=== PATIENT | female | born 1985 | race Caucasian/White ===

== ENCOUNTER 2021-08-26 11:28 | Emergency (ER) | payer OTHER ==
[~2021-08-26] VITALS: Ht 157.5 cm; Wt 50.0 kg
[2021-08-26] MEDS ORDERED: HYDROCODONE/ACETAMINOPHEN 5-325 MG TABLET PO ONE (12:15)
[2021-08-26 14:35] VITALS: BP 102/71
== END 2021-08-26 14:58 | disposition home or self-care (01) ==
LOC: EMS 11:32
DX: M54.2 Cervicalgia (principal); M54.50 Low back pain, unspecified; V49.9XXA Car occupant (driver) (passenger) injured in unspecified traffic accident, initial encounter; Y93.89 Activity, other specified; Y92.488 Other paved roadways as the place of occurrence of the external cause; Y99.8 Other external cause status
CPT/HCPCS: 71046; 72040; 72100; 99284

== ENCOUNTER 2021-08-27 11:03 | Emergency (ER) | payer OTHER ==
[~2021-08-27] VITALS: Ht 152.4 cm; Wt 47.7 kg
[2021-08-27] MEDS ORDERED: ACETAMINOPHEN 325 MG TABLET PO ONE (12:45)
[2021-08-27] MEDS ORDERED: ONDANSETRON HCL 4 MG TABLET PO ONE (12:45)
[2021-08-27 13:48] VITALS: BP 107/76
== END 2021-08-27 13:52 ==
LOC: EMS 11:06
DX: S06.0X9A Concussion with loss of consciousness of unspecified duration, initial encounter (principal); V49.9XXA Car occupant (driver) (passenger) injured in unspecified traffic accident, initial encounter; Y93.89 Activity, other specified; Y92.89 Other specified places as the place of occurrence of the external cause; Y99.8 Other external cause status
CPT/HCPCS: 70450; 99284; Q0162